=== PATIENT | female | born 1945 | race Caucasian/White ===

== ENCOUNTER 2023-05-28 13:15 | Inpatient (IN) | payer OTHER ==
[~2023-05-28] VITALS: Ht 154.9 cm; Wt 52.6 kg
[2023-05-28 13:53] VITALS: BP 82/50; PULSE 73; RESP 16; TEMP 96.6; O2SAT 100
[2023-05-28 15:09] LABS: BASOPHILS % (AUTO) 0.8 % (0.0-2.0); EOSINOPHILS # (AUTO) 0.1 K/uL (0-0.4); EOSINOPHILS % (AUTO) 2.6 % (0.0-4.0); HEMATOCRIT 35.3 % (36-48); HEMOGLOBIN 11.4 g/dL (12.0-16.0); LYMPHOCYTES % (AUTO) 19.1 % (20.5-51.1); MEAN CORPUSCULAR HEMOGLOBIN 29 pg (27-31); MEAN CORPUSCULAR HGB CONC 32 g/dL (33-37); MEAN CORPUSCULAR VOLUME 88.4 fL (80-94); MONOCYTES # (AUTO) 0.6 K/uL (0.8-1.0); MONOCYTES % (AUTO) 12.3 % (1.7-9.3); NEUTROPHILS # (AUTO) 3.4 K/uL (1.8-7.7); NEUTROPHILS % (AUTO) 65.2 % (42.2-75.2); PLATELET COUNT (AUTO) 181 K/uL (140-450); RED BLOOD CELL COUNT(AUTO) 3.99 MIL/uL (4.20-5.40); RED CELL DISTRIBUTION WIDTH 14.1 % (11.6-13.7); WHITE BLOOD COUNT (AUTO) 5.2 K/uL (4.8-10.8)
[2023-05-28 15:30] LABS: ALANINE AMINOTRANSFERASE 4 U/L (12-78); ALBUMIN 2.8 g/dL (3.4-5.0); ALKALINE PHOSPHATASE 92 U/L (50-136); ANION GAP 8.7 (8-16); ASPARTATE AMINOTRANSFERASE 17 U/L (15-37); CALCIUM 8.4 mg/dL (8.5-10.1); CARBON DIOXIDE 29.6 mmol/L (21-32); CHLORIDE 107 mmol/L (98-107); CREATININE 0.9 mg/dL (0.6-1.3); GLUCOSE 100 mg/dL (74-106); POTASSIUM 3.3 mmol/L (3.5-5.1); SODIUM SERUM 142 mmol/L (136-145); TOTAL BILIRUBIN 0.5 mg/dL (0.0-1.0); UREA NITROGEN, BLOOD 15 mg/dL (7-18)
[2023-05-28] MEDS ORDERED: SODIUM PHOSPHATE 118 ML ENEM RC ONE (15:50)
[2023-05-28 15:51] LABS: LIPASE 47 U/L (73-393)
[2023-05-28] MEDS ORDERED: NACL 0.9% 1,000 ML IV ONE ×2 (16:05→21:05)
[2023-05-28 20:50] LABS: APPEARANCE,URINE CLEAR (CLEAR); BILIRUBIN,URINE NEGATIVE (NEGATIVE); BLOOD, URINE NEGATIVE (NEGATIVE); LEUKOCYTE ESTERASE ,URINE NEGATIVE (NEGATIVE); NITRITE, URINE POSITIVE (NEGATIVE); PROTEIN,URINE NEGATIVE (NEGATIVE); UGLUCOSE NEGATIVE (NEGATIVE)
[2023-05-28 20:52] LABS: COLOR,URINE STRAW (YELLOW)
[2023-05-28] MEDS ORDERED: cefTRIAXone 1,000 MG VIAL ONE (21:45)
[2023-05-28] MEDS ORDERED: LEVE750T3 PO (21:53)
[2023-05-28 22:30] VITALS: BP 108/58; PULSE 66; RESP 18; TEMP 97; O2SAT 96
[2023-05-28] MEDS ORDERED: MEMA10TA PO (23:45)
[2023-05-28] MEDS ORDERED: QUET50TA PO (23:45)
[2023-05-28] MEDS ORDERED: ASPI-1205 PO (23:45)
[2023-05-28] MEDS ORDERED: FAMO-92 PO (23:45)
[2023-05-28] MEDS ORDERED: DOCU-299 PO (23:45)
[2023-05-28] MEDS ORDERED: CARB1TAB37 PO (23:45)
[2023-05-29 04:00] VITALS: BP 99/62; PULSE 98; RESP 18; TEMP 98.8; O2SAT 98
[2023-05-29 06:24] LABS: BASOPHILS % (AUTO) 0.7 % (0.0-2.0); EOSINOPHILS # (AUTO) 0.1 K/uL (0-0.4); EOSINOPHILS % (AUTO) 2.7 % (0.0-4.0); HEMATOCRIT 31.8 % (36-48); HEMOGLOBIN 10.4 g/dL (12.0-16.0); LYMPHOCYTES # (AUTO) 1.4 K/uL (2.5-16.5); LYMPHOCYTES % (AUTO) 28.2 % (20.5-51.1); MEAN CORPUSCULAR HEMOGLOBIN 29 pg (27-31); MEAN CORPUSCULAR HGB CONC 33 g/dL (33-37); MEAN CORPUSCULAR VOLUME 88.7 fL (80-94); MONOCYTES # (AUTO) 0.6 K/uL (0.8-1.0); MONOCYTES % (AUTO) 11.7 % (1.7-9.3); NEUTROPHILS # (AUTO) 2.8 K/uL (1.8-7.7); NEUTROPHILS % (AUTO) 56.7 % (42.2-75.2); PLATELET COUNT (AUTO) 163 K/uL (140-450); RED BLOOD CELL COUNT(AUTO) 3.58 MIL/uL (4.20-5.40); RED CELL DISTRIBUTION WIDTH 14.1 % (11.6-13.7); WHITE BLOOD COUNT (AUTO) 4.9 K/uL (4.8-10.8)
[2023-05-29 06:51] LABS: ALANINE AMINOTRANSFERASE 2 U/L (12-78); ALBUMIN 2.5 g/dL (3.4-5.0); ALKALINE PHOSPHATASE 85 U/L (50-136); ANION GAP 12.7 (8-16); ASPARTATE AMINOTRANSFERASE 14 U/L (15-37); CARBON DIOXIDE 25.7 mmol/L (21-32); CHLORIDE 111 mmol/L (98-107); CREATININE 0.7 mg/dL (0.6-1.3); GLUCOSE 89 mg/dL (74-106); MAGNESIUM 1.7 mg/dL (1.8-2.4); POTASSIUM 3.4 mmol/L (3.5-5.1); SODIUM SERUM 146 mmol/L (136-145); TOTAL BILIRUBIN 0.3 mg/dL (0.0-1.0); TOTAL PROTEIN, SERUM 5.4 g/dL (6.4-8.2); UREA NITROGEN, BLOOD 12 mg/dL (7-18)
[2023-05-29 08:00] VITALS: BP 114/61; PULSE 96; RESP 19; TEMP 97.9; O2SAT 99
[2023-05-29] MEDS ORDERED: ACETAMINOPHEN 325 MG TAB PO PRN (08:37)
[2023-05-29] MEDS ORDERED: ONDANSETRON 4 MG/2 ML VIAL IVP PRN (08:38)
[2023-05-29] MEDS ORDERED: HYDROcodone/APAP 5/325 MG 1 TAB TAB PO PRN (08:38)
[2023-05-29] MEDS ORDERED: MORPHINE SULFATE 2 MG/ML SYR IVP PRN (08:38)
[2023-05-29] MEDS ORDERED: LORazepam 2 MG/ML VIAL IVP PRN (08:39)
[2023-05-29 08:46] VITALS: PULSE 96; RESP 19
[2023-05-29] MEDS: NACL 0.9% 1,000 ML IV SCH (10:31)
[2023-05-29] MEDS: LACTULOSE 20 GM/30 ML UDC PO SCH ×3 (10:40→21:00)
[2023-05-29] MEDS ORDERED: ASPIRIN 325 MG TAB PO SCH (14:15)
[2023-05-29] MEDS ORDERED: QUEtiapine FUMARATE 25 MG TAB PO SCH (14:15)
[2023-05-29] MEDS ORDERED: DOCUSATE SODIUM 100 MG GELCAP PO SCH (14:15)
[2023-05-29] MEDS: DOCUSATE SODIUM 100 MG GELCAP PO SCH (15:50)
[2023-05-29] MEDS: POTASSIUM CHLORIDE 10 MEQ TABER PO PRN (15:51)
[2023-05-29] MEDS: ASPIRIN 325 MG TAB PO SCH (15:51)
[2023-05-29] MEDS: MAG SULF 2000 MG/WATER PREMIX 50 ML IV PRN (16:23)
[2023-05-29] MEDS: QUEtiapine FUMARATE 25 MG TAB PO SCH (17:09)
[2023-05-29] MEDS: CARBIDOPA/LEVODOPA 25/100 MG 1 TAB PO SCH (17:10)
[2023-05-29 20:00] VITALS: BP 95/56; PULSE 97; RESP 18; TEMP 98.3; O2SAT 96
[2023-05-29] MEDS: MEMANTINE 10 MG TAB PO SCH ×2 (20:50→21:00)
[2023-05-29] MEDS ORDERED: levETIRAcetam 500 MG TAB PO SCH (21:00)
[2023-05-29] MEDS ORDERED: levETIRAcetam 500 MG in NACL 0.9% 100 ML IV ONE (23:40)
[2023-05-29] MEDS ORDERED: levETIRAcetam 100 MG/ML VIAL IV ONE (23:46)
[2023-05-30] MEDS: NACL 0.9% 1,000 ML IV SCH ×3 (00:28→20:35)
[2023-05-30 02:37] VITALS: BP 105/60; PULSE 96; RESP 18; TEMP 98.8; O2SAT 94
[2023-05-30 08:00] VITALS: PULSE 101; PULSE 96; RESP 19; TEMP 97.6
[2023-05-30] MEDS: DOCUSATE SODIUM 100 MG GELCAP PO SCH (08:56)
[2023-05-30] MEDS: CARBIDOPA/LEVODOPA 25/100 MG 1 TAB PO SCH ×3 (08:57→17:31)
[2023-05-30] MEDS: ASPIRIN 325 MG TAB PO SCH (08:57)
[2023-05-30] MEDS: FAMOTIDINE 20 MG TAB PO SCH (08:57)
[2023-05-30] MEDS: LACTULOSE 20 GM/30 ML UDC PO SCH ×2 (08:58→20:35)
[2023-05-30] MEDS ORDERED: levETIRAcetam 500 MG in NACL 0.9% 100 ML IV SCH (09:00)
[2023-05-30] MEDS ORDERED: NON-FORMULARY ITEM (Famotidine* (Pepcid*) 40 MG) PO SCH (09:00)
[2023-05-30] MEDS: levETIRAcetam 500 MG in NACL 0.9% 100 ML IV SCH ×2 (10:00→20:36)
[2023-05-30] MEDS: MEMANTINE 10 MG TAB PO SCH ×2 (10:00→20:35)
[2023-05-30 12:00] VITALS: BP 117/62; PULSE 101; RESP 18; TEMP 97.6; O2SAT 97
[2023-05-30] MEDS ORDERED: ALGINATE ROPE MC PRN (13:35)
[2023-05-30] MEDS ORDERED: FOAM DRESSING TP PRN (13:35)
[2023-05-30] MEDS: FOAM DRESSING TP SCH (14:41)
[2023-05-30] MEDS: QUEtiapine FUMARATE 25 MG TAB PO SCH (17:32)
[2023-05-30 20:00] VITALS: BP 121/72; PULSE 82; PULSE 96; RESP 17; TEMP 98; O2SAT 96
[2023-05-31] VITALS (7 sets, daily range): BP systolic 93–134; BP diastolic 57–77; PULSE 80–101; RESP 16–19; TEMP 97.1–98.4; O2SAT 96–99
[2023-05-31] MEDS: LACTULOSE 20 GM/30 ML UDC PO SCH ×2 (09:58→20:22)
[2023-05-31] MEDS: FAMOTIDINE 20 MG TAB PO SCH (09:59)
[2023-05-31] MEDS: POTASSIUM CHLORIDE 10 MEQ TABER PO PRN (09:59)
[2023-05-31] MEDS: ASPIRIN 325 MG TAB PO SCH (09:59)
[2023-05-31] MEDS: MEMANTINE 10 MG TAB PO SCH ×2 (09:59→20:22)
[2023-05-31] MEDS: CARBIDOPA/LEVODOPA 25/100 MG 1 TAB PO SCH ×3 (09:59→18:40)
[2023-05-31] MEDS: DOCUSATE SODIUM 100 MG GELCAP PO SCH (09:59)
[2023-05-31] MEDS: levETIRAcetam 500 MG in NACL 0.9% 100 ML IV SCH ×2 (10:32→20:23)
[2023-05-31] MEDS: NACL 0.9% 1,000 ML IV SCH ×2 (10:34→23:06)
[2023-05-31] MEDS: Z-GUARD PASTE TP SCH (13:00)
[2023-05-31] MEDS: GAUZE TP SCH (13:00)
[2023-05-31] MEDS: ALGINATE ROPE MC SCH (13:00)
[2023-05-31] MEDS: QUEtiapine FUMARATE 25 MG TAB PO SCH (16:01)
[2023-05-31] MEDS: MAG SULF 2000 MG/WATER PREMIX 50 ML IV PRN (18:40)
[2023-06-01 04:00] VITALS: BP 106/57; PULSE 72; RESP 16; TEMP 97.6; O2SAT 98
[2023-06-01] MEDS: NACL 0.9% 1,000 ML IV SCH ×2 (04:50→20:13)
[2023-06-01 08:00] VITALS: PULSE 89; RESP 18; TEMP 98.4; O2SAT 97
[2023-06-01] MEDS: levETIRAcetam 500 MG in NACL 0.9% 100 ML IV SCH ×2 (09:53→21:25)
[2023-06-01] MEDS: DOCUSATE SODIUM 100 MG GELCAP PO SCH (09:55)
[2023-06-01] MEDS: LACTULOSE 20 GM/30 ML UDC PO SCH ×2 (09:55→20:13)
[2023-06-01] MEDS: ASPIRIN 325 MG TAB PO SCH (09:55)
[2023-06-01] MEDS: MEMANTINE 10 MG TAB PO SCH ×2 (09:56→20:13)
[2023-06-01] MEDS: FAMOTIDINE 20 MG TAB PO SCH (09:56)
[2023-06-01] MEDS: CARBIDOPA/LEVODOPA 25/100 MG 1 TAB PO SCH ×3 (09:56→18:25)
[2023-06-01 12:00] VITALS: BP 99/53; PULSE 89; RESP 18; TEMP 98.4; O2SAT 98
[2023-06-01] MEDS: GAUZE TP SCH (13:00)
[2023-06-01] MEDS: ALGINATE ROPE MC SCH (13:00)
[2023-06-01] MEDS: Z-GUARD PASTE TP SCH (13:00)
[2023-06-01] MEDS: MAG SULF 2000 MG/WATER PREMIX 50 ML IV PRN (15:55)
[2023-06-01] MEDS: QUEtiapine FUMARATE 25 MG TAB PO SCH (18:25)
[2023-06-01 20:00] VITALS: BP 91/50; PULSE 77; RESP 18; TEMP 96.5; O2SAT 95
[2023-06-02 04:00] VITALS: BP 96/54; PULSE 84; RESP 18; TEMP 98.2; O2SAT 96
[2023-06-02 07:18] LABS: INR 1.02 (0.8-1.2); PARTIAL THROMBOPLASTIN TIME 26.5 secs (22-35.6); PROTHROMBIN TIME 10.7 secs (10.8-13.4)
[2023-06-02 08:00] VITALS: PULSE 84; RESP 18; TEMP 97.9; O2SAT 96
[2023-06-02] MEDS: MEMANTINE 10 MG TAB PO SCH ×2 (08:28→20:24)
[2023-06-02] MEDS: FAMOTIDINE 20 MG TAB PO SCH (08:28)
[2023-06-02] MEDS: LACTULOSE 20 GM/30 ML UDC PO SCH ×2 (08:28→20:25)
[2023-06-02] MEDS: DOCUSATE SODIUM 100 MG GELCAP PO SCH (08:29)
[2023-06-02] MEDS: CARBIDOPA/LEVODOPA 25/100 MG 1 TAB PO SCH ×3 (08:29→16:55)
[2023-06-02] MEDS: ASPIRIN 325 MG TAB PO SCH (08:29)
[2023-06-02] MEDS: FOAM DRESSING TP SCH (08:42)
[2023-06-02 08:57] LABS: BASOPHILS % (AUTO) 0.6 % (0.0-2.0); EOSINOPHILS # (AUTO) 0.5 K/uL (0-0.4); EOSINOPHILS % (AUTO) 8.6 % (0.0-4.0); HEMATOCRIT 29.5 % (36-48); HEMOGLOBIN 9.6 g/dL (12.0-16.0); LYMPHOCYTES # (AUTO) 1.2 K/uL (2.5-16.5); LYMPHOCYTES % (AUTO) 22.2 % (20.5-51.1); MEAN CORPUSCULAR HEMOGLOBIN 29 pg (27-31); MEAN CORPUSCULAR HGB CONC 33 g/dL (33-37); MEAN CORPUSCULAR VOLUME 88.6 fL (80-94); MONOCYTES # (AUTO) 0.6 K/uL (0.8-1.0); MONOCYTES % (AUTO) 10.6 % (1.7-9.3); NEUTROPHILS # (AUTO) 3.1 K/uL (1.8-7.7); PLATELET COUNT (AUTO) 146 K/uL (140-450); RED BLOOD CELL COUNT(AUTO) 3.33 MIL/uL (4.20-5.40); RED CELL DISTRIBUTION WIDTH 14.5 % (11.6-13.7); WHITE BLOOD COUNT (AUTO) 5.3 K/uL (4.8-10.8)
[2023-06-02 09:03] LABS: ANION GAP 9.7 (8-16); CALCIUM 7.6 mg/dL (8.5-10.1); CARBON DIOXIDE 24.8 mmol/L (21-32); CHLORIDE 112 mmol/L (98-107); CREATININE 0.7 mg/dL (0.6-1.3); GLUCOSE 89 mg/dL (74-106); POTASSIUM 3.5 mmol/L (3.5-5.1); SODIUM SERUM 143 mmol/L (136-145); UREA NITROGEN, BLOOD 24 mg/dL (7-18)
[2023-06-02] MEDS: levETIRAcetam 500 MG in NACL 0.9% 100 ML IV SCH ×2 (09:52→20:26)
[2023-06-02] MEDS ORDERED: HYDROGEN PEROXIDE 3% 240 ML BTL TP ONE (11:40)
[2023-06-02 12:00] VITALS: BP 132/71; PULSE 70; RESP 18; TEMP 98.3; O2SAT 97
[2023-06-02] MEDS: GAUZE TP SCH (13:00)
[2023-06-02] MEDS: ALGINATE ROPE MC SCH (13:00)
[2023-06-02] MEDS: NACL 0.9% 1,000 ML IV SCH (14:21)
[2023-06-02] MEDS: Z-GUARD PASTE TP SCH (14:35)
[2023-06-02] MEDS ORDERED: LEVOFLOXACIN 750 MG/D5W PREMIX 150 ML IV SCH (16:00)
[2023-06-02] MEDS: QUEtiapine FUMARATE 25 MG TAB PO SCH (16:55)
[2023-06-02 20:00] VITALS: BP 95/47; PULSE 94; RESP 16; TEMP 97.8; O2SAT 96; O2SAT 97
[2023-06-03] MEDS: NACL 0.9% 1,000 ML IV SCH ×2 (01:06→16:43)
[2023-06-03 04:00] VITALS: BP 106/63; PULSE 95; RESP 17; TEMP 98.8; O2SAT 97
[2023-06-03 08:00] VITALS: BP 139/52; PULSE 87; RESP 18; TEMP 99.1; O2SAT 96
[2023-06-03] MEDS: CARBIDOPA/LEVODOPA 25/100 MG 1 TAB PO SCH ×3 (08:42→16:44)
[2023-06-03] MEDS: MEMANTINE 10 MG TAB PO SCH ×2 (08:43→20:26)
[2023-06-03] MEDS: FAMOTIDINE 20 MG TAB PO SCH (08:43)
[2023-06-03] MEDS: LACTULOSE 20 GM/30 ML UDC PO SCH ×2 (09:00→20:27)
[2023-06-03] MEDS: DOCUSATE SODIUM 100 MG GELCAP PO SCH (09:00)
[2023-06-03] MEDS: ASPIRIN 325 MG TAB PO SCH (09:00)
[2023-06-03 09:02] VITALS: PULSE 87; RESP 18; O2SAT 96
[2023-06-03] MEDS: levETIRAcetam 500 MG in NACL 0.9% 100 ML IV SCH ×4 (09:05→20:51)
[2023-06-03] MEDS: Z-GUARD PASTE TP SCH (13:08)
[2023-06-03] MEDS: ALGINATE ROPE MC SCH (13:09)
[2023-06-03] MEDS: GAUZE TP SCH (13:09)
[2023-06-03] MEDS ORDERED: HYDROGEN PEROXIDE 3% 240 ML BTL TP ONE ×2 (15:47→18:53)
[2023-06-03 16:00] VITALS: BP 124/46; PULSE 64; RESP 18; TEMP 97.1; O2SAT 92
[2023-06-03] MEDS: QUEtiapine FUMARATE 25 MG TAB PO SCH (16:45)
[2023-06-03] MEDS ORDERED: LIDOCAINE/EPI MPF 1%1:200000 30 ML VIAL INJ ONE (18:48)
[2023-06-03 20:00] VITALS: BP 106/45; PULSE 71; RESP 18; TEMP 97.4; O2SAT 96; O2SAT 98
[2023-06-04 04:36] VITALS: BP 137/81; PULSE 88; RESP 18; TEMP 98.4; O2SAT 95
[2023-06-04 07:04] LABS: BASOPHILS # (AUTO) 0.1 K/uL (0.00-0.22); BASOPHILS % (AUTO) 1.3 % (0.0-2.0); EOSINOPHILS # (AUTO) 0.2 K/uL (0-0.4); EOSINOPHILS % (AUTO) 3.1 % (0.0-4.0); HEMATOCRIT 31.5 % (36-48); HEMOGLOBIN 10.4 g/dL (12.0-16.0); LYMPHOCYTES # (AUTO) 1.2 K/uL (2.5-16.5); LYMPHOCYTES % (AUTO) 23.9 % (20.5-51.1); MEAN CORPUSCULAR HEMOGLOBIN 29 pg (27-31); MEAN CORPUSCULAR HGB CONC 33 g/dL (33-37); MEAN CORPUSCULAR VOLUME 88.7 fL (80-94); MONOCYTES # (AUTO) 0.5 K/uL (0.8-1.0); MONOCYTES % (AUTO) 10.4 % (1.7-9.3); NEUTROPHILS # (AUTO) 3.1 K/uL (1.8-7.7); NEUTROPHILS % (AUTO) 61.3 % (42.2-75.2); PLATELET COUNT (AUTO) 157 K/uL (140-450); RED BLOOD CELL COUNT(AUTO) 3.55 MIL/uL (4.20-5.40); RED CELL DISTRIBUTION WIDTH 14.8 % (11.6-13.7)
[2023-06-04 07:23] LABS: ANION GAP 13.3 (8-16); CHLORIDE 110 mmol/L (98-107); CREATININE 0.6 mg/dL (0.6-1.3); GLUCOSE 86 mg/dL (74-106); POTASSIUM 3.3 mmol/L (3.5-5.1); SODIUM SERUM 142 mmol/L (136-145); UREA NITROGEN, BLOOD 14 mg/dL (7-18)
[2023-06-04 08:00] VITALS: BP 121/69; PULSE 86; RESP 16; RESP 18; TEMP 97.9; O2SAT 96; O2SAT 98
[2023-06-04] MEDS: FAMOTIDINE 20 MG TAB PO SCH (08:53)
[2023-06-04] MEDS: DOCUSATE SODIUM 100 MG GELCAP PO SCH (08:53)
[2023-06-04] MEDS: MEMANTINE 10 MG TAB PO SCH (08:53)
[2023-06-04] MEDS: CARBIDOPA/LEVODOPA 25/100 MG 1 TAB PO SCH ×2 (08:53→13:00)
[2023-06-04] MEDS: levETIRAcetam 500 MG in NACL 0.9% 100 ML IV SCH (09:20)
[2023-06-04] MEDS: ASPIRIN 325 MG TAB PO SCH (09:42)
[2023-06-04] MEDS: LACTULOSE 20 GM/30 ML UDC PO SCH (09:42)
[2023-06-04] MEDS: POTASSIUM CHLORIDE 10 MEQ TABER PO PRN (10:07)
[2023-06-04] MEDS: Z-GUARD PASTE TP SCH (13:01)
[2023-06-04] MEDS: ALGINATE ROPE MC SCH (13:01)
[2023-06-04] MEDS: GAUZE TP SCH (13:01)
[2023-06-04] MEDS ORDERED: ALGINATE ROPE MC (13:17)
[2023-06-04] MEDS ORDERED: LEVO750T75 PO (13:17)
[2023-06-04] MEDS ORDERED: ACET-1182 PO (13:17)
== END 2023-06-04 15:35 | disposition home health service (06) | DRG 853 ==
LOC: MED 13:15 → MMU 21:07 → MTU 21:30
PROVIDERS: ADMIT Hospitalist; ATTEND Hospitalist
PROC: 0JBM0ZZ Excision of Left Upper Leg Subcutaneous Tissue and Fascia, Open Approach (ICD-10-PCS; principal; 2023-06-01)
DX: A41.9 Sepsis, unspecified organism (principal); L89.224 Pressure ulcer of left hip, stage 4; R57.1 Hypovolemic shock; N39.0 Urinary tract infection, site not specified; K59.09 Other constipation; E87.6 Hypokalemia; G20 Parkinson's disease; F02.80 Dementia in other diseases classified elsewhere, unspecified severity, without behavioral disturbance, psychotic disturbance, mood disturbance, and anxiety; G40.909 Epilepsy, unspecified, not intractable, without status epilepticus; K57.90 Diverticulosis of intestine, part unspecified, without perforation or abscess without bleeding; E88.09 Other disorders of plasma-protein metabolism, not elsewhere classified; K21.9 Gastro-esophageal reflux disease without esophagitis; N28.1 Cyst of kidney, acquired; K52.9 Noninfective gastroenteritis and colitis, unspecified; I35.0 Nonrheumatic aortic (valve) stenosis
CPT/HCPCS: 36415; 74018; 80048; 80053; 81003; 82948; 83690; 83735; 83880; 84484; 85025; 85610; 85730; 86886; 86900; 86901; 87040; 87070; 87075; 87081; 87086; 87186; 87205; 88304; 93005; 96365; 97110; 97112; 97116; 97163-GP; 97530; 99285; A4649; J0696; J1644; J1953; J1956; J2001; J2060; J3475; J7060